=== PATIENT | male | born 1940 | race African-American/Black ===

== ENCOUNTER 2019-08-29 04:40 | Emergency (ER) | payer OTHER ==
[~2019-08-29] VITALS: Ht 182.9 cm; Wt 82.0 kg
[2019-08-29] MEDS ORDERED: METHYLPREDNISOLONE SOD SUCC 125 MG/2 ML VIAL IV STA (04:58)
[2019-08-29] MEDS ORDERED: MAGNESIUM 2 G PREMIX 50 ML IV ONE (05:00)
[2019-08-29 05:33] LABS: BASOPHILS % 0.5 % (0.0-2.0); EOSINOPHILS % 0.8 % (0.0-5.0); HEMATOCRIT. 43.9 % (42.0-52.0); HEMOGLOBIN. 14.3 g/dL (14.0-18.0); MEAN PLATELET VOLUME 8.1 fl (7.4-10.4); NEUTROPHILS % 59.7 % (40.0-76.0); PLATELET 277 x1000/uL (130-400); RED BLOOD CELL COUNT 4.77 mill/uL (4.7-6.1); RED CELL DISTRIBUTION WIDTH 16.6 % (11.6-14.6)
[2019-08-29 05:38] LABS: CHLORIDE 106 mEq/L (98-107)
[2019-08-29] MEDS ORDERED: ASPIRIN 325MG EC TABLET PO NR (07:17)
[2019-08-29] MEDS ORDERED: POTASSIUM CHLORIDE INJ 40 MEQ in DEXT 5% WATER 250 ML IV NR (08:00)
[2019-08-29] MEDS ORDERED: AZITHROMYCIN 500 MG in DEXT 5% WATER 250 ML IV SCH (09:45)
[2019-08-29] MEDS ORDERED: CEFTRIAXONE 2 G PREMIX 50 ML IV ONE (09:45)
[2019-08-29 11:09] VITALS: BP 148/77
== END 2019-08-29 11:36 | disposition short-term general hospital (02) ==
LOC: ER 04:40
DX: R06.03 Acute respiratory distress (principal); E87.6 Hypokalemia; N17.9 Acute kidney failure, unspecified; I10 Essential (primary) hypertension
CPT/HCPCS: 36415; 71045; 80053; 83880; 84484; 85025; 87804; 93005; 96365; 96366; 96367; 96368; 96375; 99285; J0456; J0696; J2930; J3475; J3480; J7060